=== PATIENT | female | born 1980 | race Caucasian/White ===

== ENCOUNTER → 2020-11-12 | Outpatient (CLI) | payer OTHER ==
[~2020-11-12] MED LIST: ACETAMINOPHEN-1 EAC1 PO; ADDERALL XR 3030 MG PO; BUSPIRONE HCL10 MG PO; CYCLOBENZAPRINE5 MG PO; NAPROSYN500 MG PO; VISTARIL50 MG PO; XANAX1 MG PO
== END ==
LOC: LAB 07:54
PROVIDERS: ATTEND Nurse Practitioner
DX: U07.1 COVID-19 (principal)